=== PATIENT | male | born 1990 | race Caucasian/White ===

== ENCOUNTER 2017-01-23 08:28 | Emergency (ER) | payer BC ==
[~2017-01-23] VITALS: Ht 172.7 cm; Wt 100.0 kg
[2017-01-23 09:05] LABS: BASOPHILS % 0.6 % (0.0-2.0); EOSINOPHILS % 2.1 % (0.0-5.0); HEMATOCRIT. 42.5 % (42.0-52.0); LYMPHOCYTES % 25.4 % (20.0-50.0); MEAN CORPUSCULAR HEMOGLOBIN 22.2 pg (28.0-32.0); MEAN CORPUSCULAR VOLUME 67.5 fL (80.0-94.0); MEAN PLATELET VOLUME 7.7 fl (7.4-10.4); NEUTROPHILS % 65.9 % (40.0-76.0); PLATELET 190 x1000/uL (130-400); RED CELL DISTRIBUTION WIDTH 14.1 % (11.6-14.6)
[2017-01-23 09:15] LABS: CHLORIDE 105 mEq/L (98-107)
[2017-01-23 09:16] LABS: CARBON DIOXIDE 28 mEq/L (21-32)
[2017-01-23] MEDS ORDERED: SODIUM CHLORIDE 0.9% 1,000 ML IV ONE (09:16)
[2017-01-23] MEDS ORDERED: ONDANSETRON HCL 4MG/2ML VIAL IV STA (09:16)
[2017-01-23] MEDS ORDERED: FAMOTIDINE 20MG/2ML VIAL IV STA (09:16)
[2017-01-23] MEDS ORDERED: METOCLOPRAMIDE HCL 10MG/2ML VIAL IV STA (09:16)
[2017-01-23 09:26] LABS: PLATELET ESTIMATE NORMAL
[2017-01-23] MEDS ORDERED: LORAZEPAM 2MG/ML CPJ IV ONE (09:30)
[2017-01-23 13:35] VITALS: BP 114/65
== END 2017-01-23 13:39 | disposition home or self-care (01) ==
LOC: ER 08:44
DX: T51.0X1A Toxic effect of ethanol, accidental (unintentional), initial encounter (principal); T40.7X1A Poisoning by cannabis (derivatives), accidental (unintentional), initial encounter; R11.2 Nausea with vomiting, unspecified; Y92.018 Other place in single-family (private) house as the place of occurrence of the external cause
CPT/HCPCS: 36415; 80053; 83690; 85025; 96361; 96374; 96375; 99284; J2060; J2405; J2765; J3490; Z7610; J7030